=== PATIENT | female | born 1970 | race Caucasian/White ===

== ENCOUNTER → 2021-07-04 00:20 | Outpatient (CLI) | payer OTHER, SELFPAY ==
[2021-07-04 18:40] LABS: SARS-CoV-2 RNA PCR Negative
== END ==
PROVIDERS: Visit Provider Surgery Plastic and Reconstructive Surgery
DX: Z20.822 Contact with and (suspected) exposure to COVID-19 (principal)
CPT/HCPCS: C9803; U0003; U0005

== ENCOUNTER 2021-07-07 01:27 | Day surgery (SDC) | payer OTHER, SELFPAY ==
[2021-06-29 14:25] VITALS: BMI 26.2
[2021-07-07] VITALS (8 sets, daily range): BP systolic 126–146; BP diastolic 78–88; PULSE 70–89; RESP 14–16; TEMP 36.4–36.7; O2SAT 100; BMI 26.9
--- NOTE | 2021-07-07 07:38 | WPDANESEPPF ---
Anes - Initial Pre Proc Eval Procedure: Operation Date: 07/07/21 13:00 Proposed Procedures p Bilateral Augmentation Mammoplasty - Paul Yen MD Date/Time: 07/07/21 07:38 Surgeon: Paul Yen MD Pre Op Diagnosis: micromastia Patient Data Age: 51 Gender: F Height: 1.64 m Weight: 70.5 kg Allergies Allergy/AdvReac Type Severity Reaction Status Date / Time penicillin G Allergy Severe Anaphylaxis Verified 07/07/21 11:13 Home Medications Medication Instructions Recorded Confirmed Type docusate sodium 100 mg capsule 100 mg PO DAILY #14 cap 06/21/21 Rx ondansetron HCl 4 mg tablet 4 mg PO Q8H #21 tablet 06/21/21 Rx oxycodone-acetaminophen 5 mg-325 1 tablet PO Q6H PRN #15 tablet 06/21/21 06/21/21 Rx mg tablet Patient hx anesthesia problems: none Family hx anesthesia problems: none PMFSH Surgical History Surgical History History of thyroidectomy Family History Family History Father Hypertension Heart disease Social History Social History Smoking status: Never smoker Alcohol intake: current Substance use: never Living arrangements: with family Spiritual care concerns: No Anes - Eval Final PreProcedure Day of Procedure 07/07/21 07:38 Patient weight: overweight Heart: regular rate and rhythm Lungs: clear to auscultation and normal air movement Airway: Mallampati scale class II Neurological: alert and oriented Last oral intake: >/= 8 hours ASA classification: I Emergent: no Anesthetic plan: proceed Anesthesia type and monitoring: general LMA and standard monitoring Informed Consent: The patient's anesthetic plan and its attendant risks and benefits were discussed with the patient/family/POA. Questions were solicited and answers provided to the satisfaction of the patient/family/POA.
[2021-07-07 11:48] LABS: Urine Cotinine NEGATIVE
[2021-07-07] MEDS: LACTATED RINGERS 1,000 ML 30 ML IV CONT ×2 (11:53→13:57)
--- NOTE | 2021-07-07 12:14 | WPDHPUPDATE1 ---
History and Physical Update Update Date/Time: 07/07/21 12:14 History and Physical has been reviewed, including an updated exam of the patient. There are NO changes in the patient's condition. Risks, benefits, and alternatives have been discussed and questions answered. Patient agrees to proceed with procedure.
--- NOTE | 2021-07-07 12:43 | W.PM.PROC2 ---
Procedure Note - Detailed Date of Procedure 07/07/21 Pre-op Diagnosis micromastia Post-op Diagnosis same Procedure Performed Bilateral Augmentation Mammaplasty Surgeon Paul Yen MD Anesthesia general Findings Bilateral Nayana Jose Soft-Touch implants 290cc Right - REF# [id number] SN [id number]. Dual plane 2 Left - REF# [id number] SN [id number]. Dual plane 2 Description of Procedure She is here today for bilateral breast augmentation. Previously and again today the risks, benefits, alternatives were discussed in extensive detail. I wanted her to be very realistic about the risks involved as well as expectations. We discussed aftercare and what to monitor for. Made sure answered all of her questions to her satisfaction today and consent was obtained. Marked in the preoperative holding area with their verification. The patient was taken to the operating room placed supine on the operating table. Anesthesia was provided by anesthesiology. A surgical time-out was taken. We cleansed the skin and 1% lidocaine and 0.25% Marcaine with epinephrine was used anesthetize as a field block. She was prepped and draped in a standard sterile fashion. Tegaderm nipple Mina were placed. A 15 blade used to make an incision along the inframammary fold. Dissection was continued at 45 degree angle until the chest wall as identified. I incised the pectoralis major along its inferior border and completely released the inferior border leaving the medial border intact. I created a subpectoral pocket in the appropriate dimensions based on our preoperative planning for the implant. I then copiously irrigated with saline solution and verified a strict hemostasis. Next the use a triple antibiotic and Betadine containing solution to irrigate the pocket. I washed my gloves with the triple antibiotic and Betadine solution. We washed the implant immediately upon opening it with this solution and only opened it when we needed it. I used implant funnel and no-touch technique. The implant was introduced into the pocket using the funnel. Having verified positioning of the implant this was closed using 2-0 Vicryl followed by 3-0 Monocryl in a running subcuticular 4-0 Monocryl followed by tissue glue. Fluffs, Stu wrap, and surgical bra were placed. Patient was awoke and taken to PACU without difficulty. All instrument sponge counts were correct at the end of the case. Estimated Blood Loss 50 Drains No Packing No Pathology none sent Complications No immediate complications Condition stable Disposition PACU
[2021-07-07] MEDS: LIDO 1%/EPINEPHRINE/PF 1:200,000 30 ML VIAL 60 ML XX (12:59)
[2021-07-07] MEDS: TRANEXAMIC ACID 1,000MG/ISO100 1,000 MG/100 ML BAG 200 MG IVPB (12:59)
[2021-07-07] MEDS: CLINDAMYCIN 900 MG/D5W 50 ML 900 MG/50 ML PIGGYBACK 50 MG IVPB (13:00)
--- NOTE | 2021-07-07 13:40 | SUR.OPER ---
Breast Implants brought from Surgeon's office. RIGHT Breast Implant NATRELLE INSPIRA SOFT TOUCH BREAST IMPLANT SMOOTH ROUND LOW PROFILE REF: [id number] EXP: 07-14-2025 SN: [id number] LEFT Breast Implant: NATRELLE INSPIRA SOFT TOUCH BREAST IMPLANT SMOOTH ROUND LOW PROFILE REF: [id number] EXP: 12-30-2023 SN: [id number]
[2021-07-07] MEDS: ONDANSETRON INJ 4 MG/2 ML VIAL IV PUSH (14:08)
[2021-07-07] MEDS: fentaNYL CITRATE INJ (*CRX) 100 MCG/2 ML VIAL 25 MCG IV PUSH ×4 (14:10→14:41)
[2021-07-07] MEDS: oxyCODONE HCL (*CRX) 5 MG TAB IR PO (15:14)
== END 2021-07-07 15:52 | disposition home or self-care (01) ==
PROVIDERS: Visit Provider Surgery Plastic and Reconstructive Surgery
PROC: (CPT 19325; principal; 2021-07-07 13:00)
DX: Z41.1 Encounter for cosmetic surgery (principal); N64.82 Hypoplasia of breast; Z79.899 Other long term (current) drug therapy
CPT/HCPCS: 19325; 80307; A9270; J1100; J1580; J2250; J2405; J2704; J3010; J7120